=== PATIENT | male | born 1985 | race Caucasian/White ===

== ENCOUNTER 2017-02-03 20:52 | Emergency (ER) | payer MEDICAID ==
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
== END 2017-02-03 21:35 | disposition home or self-care (01) ==
LOC: ER 20:52
DX: L03.115 Cellulitis of right lower limb (principal)
CPT/HCPCS: J1885; Z7502